=== PATIENT | female | born 1970 | race Caucasian/White ===

== ENCOUNTER 2016-10-21 09:36 | Emergency (ER) | payer BC ==
[~2016-10-21] VITALS: Ht 162.6 cm; Wt 55.5 kg
[2016-10-21 09:37] VITALS: TEMP 36.5; Ht 162.6 cm; Wt 55.5 kg
[2016-10-21] MEDS ORDERED: SODIUM CHLORIDE 0.9% 1000ML 1,000 ML IV STA (10:15)
--- NOTE | 2016-10-21 10:47 | EMERGENCY ROOM VISIT NOTE ---
History Report prepared by Chel: Denita Ba Under the Supervision of: Dr. Say Gonzalez M.D. First contact with patient: 09:51 Chief Complaint: SYNCOPE (NEAR SYNCOPE) Stated Complaint: SYNCOPE Nursing Triage Summary: Pt. dx. with glaucoma 06/2016. She feels that this morrning she experienced a "glaucoma attack". She went from a room with bright lights to darkness and suddenly noticed "snake rainbows" in her peripheral vision. She then had a syncopal episode in the apartment in [place], she is staying in an apartment over the coffee shop (her son is at [facility]), she denies injury, and the coffee shop called 911. History of Present Illness The patient is a 45 year old female who presents to the Emergency Room with complaints of an episode of syncope occurring this morning. 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 She states that she was plucking her eyebrows in a bright light this morning and moved into a dark room when she started seeing "colored snakes." The patient states that she instantly felt faint and nauseous. She states she decided she might need coffee and took he daughter outside to go get some when she lost consciousness on the sidewalk. She states that she thinks it was only for a couple seconds. She states she didn 't hit her head because she landed on her arm. She reports that shortly after the episode, the "rainbow snakes" went away. She states that someone saw her fall and no one saw shaking or tongue biting. The patient currently complains of lightheadedness, headache, and tingling in hands. She currently rates her pain as a 2/10 in severity. The patient denies any numbness, these symptoms in the past, chest pain, sob, urinary symptoms, feeling heart beat change, and the use of blood thinners. The patient notes a history of mitral valve prolapse. Source of History: patient Onset: this morning Position: other (global) Symptom Intensity: 2/10 Quality: other (global) Timing: other (episode) Associated Symptoms: + headache, + nausea, No chest pain, No SOB, No urinary symptoms, No numbness Note: The patient complains of seeing "rainbow snakes," tingling in her hands, and lightheadedness. The patient denies hitting her head, these symptoms in the past , feeling her heartbeat change, and the use of blood thinners. Review of Systems See HPI for pertinent positives and negatives. A total of ten systems were reviewed and were otherwise negative. Past Medical & Surgical Medical Problems: (1) Mitral valve prolapse Family History No pertinent family history Social History Smoking Status: Former Smoker Alcohol Use: occasionally (2 beers a week) Drug Use: none Housing Status: lives with family Occupation Status: employed Current/Historical Medications No Active Prescriptions or Reported Meds Allergies Coded Allergies: Doxycycline (Unverified Allergy, Intermediate, HIVES, 10/21/16) Meperidine (Unverified Allergy, Intermediate, VOMITING, 10/21/16) Morphine (Unverified Allergy, Intermediate, UNKNOWN/ CHILDHOOD ALLERGY., ) Physical Exam Vital Signs Date Time Temp Pulse Resp B/P (MAP) Pulse Ox O2 Delivery O2 Flow Rate FiO2 10/21/16 11:18 50 16 110/70 98 Room Air 10/21/16 10:25 59 10/21/16 10:00 Room Air 10/21/16 09:57 55 96/58 57 95/68 63 106/67 10/21/16 09:37 36.5 56 16 88/71 98 Room Air Physical Exam GENERAL: Awake, alert, well-appearing, NAD HENT: Normocephalic, atraumatic. No visual deficits. Visual acuity is normal. No noted acute abrasions, hematoma, or trauma to head or face. EYES: Normal conjunctiva. Sclera non-icteric. NECK: Supple. No nuchal rigidity. FROM. RESPIRATORY: CTAB, no rhonchi, wheezing, crackles CARDIAC: RRR, no MRG ABDOMEN: Soft, NTND, BS+ MSK: No chest wall TTP, no LE edema NEURO: GCS 15, CN 2-12 intact, moves all 4s on command SKIN: No rash or jaundice noted. Medical Decision & Procedures ER Provider Diagnostic Interpretation: Radiology results as stated below per my review and radiologist interpretation: CHEST ONE VIEW PORTABLE CLINICAL HISTORY: syncope COMPARISON STUDY: No previous studies for comparison. FINDINGS: The cardiac and mediastinal contours are normal. There is no evidence of focal pulmonary consolidation. There is no evidence of failure. No pleural effusions are visualized.[ IMPRESSION: No active disease in the chest. Electronically signed by: Drew Burgess M.D. 10/21/2016 11:10 AM Dictated Date/Time: 10/21/2016 11:10 AM Laboratory Results 10/21/16 11:04 Red Blood Count 4.08, Mean Corpuscular Volume 98.5, Mean Corpuscular Hemoglobin 34.6, Mean Corpuscular Hemoglobin Concent 35.1, Mean Platelet Volume 8.7, Neutrophils (%) (Auto) 85.0, Lymphocytes (%) (Auto) 8.7, Monocytes (%) (Auto) 5.6, Eosinophils (%) (Auto) 0.3, Basophils (%) (Auto) 0.2, Neutrophils # (Auto) 11.03, Lymphocytes # (Auto) 1.13, Monocytes # (Auto) 0.72, Eosinophils # (Auto) 0.04, Basophils # (Auto) 0.02 10/21/16 11:04 Test 10/21/16 11:04 White Blood Count 12.96 K/uL (4.8-10.8) Red Blood Count 4.08 M/uL (4.2-5.4) Hemoglobin 14.1 g/dL (12.0-16.0) Hematocrit 40.2 % (37-47) Mean Corpuscular Volume 98.5 fL (80-100) Mean Corpuscular Hemoglobin 34.6 pg (25-34) Mean Corpuscular Hemoglobin Concent 35.1 g/dl (32-36) Platelet Count 298 K/uL (130-400) Mean Platelet Volume 8.7 fL (7.4-10.4) Neutrophils (%) (Auto) 85.0 % Lymphocytes (%) (Auto) 8.7 % Monocytes (%) (Auto) 5.6 % Eosinophils (%) (Auto) 0.3 % Basophils (%) (Auto) 0.2 % Neutrophils # (Auto) 11.03 K/uL (1.4-6.5) Lymphocytes # (Auto) 1.13 K/uL (1.2-3.4) Monocytes # (Auto) 0.72 K/uL (0.11-0.59) Eosinophils # (Auto) 0.04 K/uL (0-0.5) Basophils # (Auto) 0.02 K/uL (0-0.2) RDW Standard Deviation 43.9 fL (36.4-46.3) RDW Coefficient of Variation 12.1 % (11.5-14.5) Immature Granulocyte % (Auto) 0.2 % Immature Granulocyte # (Auto) 0.02 K/uL (0.00-0.02) Urine Color YELLOW Urine Appearance CLEAR (CLEAR) Urine pH >= 9.0 (4.5-7.5) Urine Specific [place] 1.013 (1.000-1.030) Urine Protein NEG (NEG) Urine Glucose (UA) NEG (NEG) Urine Ketones NEG (NEG) Urine Occult Blood NEG (NEG) Urine Nitrite NEG (NEG) Urine Bilirubin NEG (NEG) Urine Urobilinogen NEG (NEG) Urine Leukocyte Esterase NEG (NEG) Anion Gap 6.0 mmol/L (3-11) Est Creatinine Clear Calc Drug Dose 70.6 ml/min Estimated GFR () 93.9 Estimated GFR (Non- 81.0 BUN/Creatinine Ratio 10.6 (10-20) Calcium Level 8.3 mg/dl (8.5-10.1) Phosphorus Level 1.6 mg/dl (2.5-4.9) Magnesium Level 2.1 mg/dl (1.8-2.4) Total Bilirubin 0.4 mg/dl (0.2-1) Direct Bilirubin 0.1 mg/dl (0-0.2) Aspartate Amino Transf (AST/SGOT) 17 U/L (15-37) Alanine Aminotransferase (ALT/SGPT) 23 U/L (12-78) Alkaline Phosphatase 52 U/L (45-117) Total Protein 6.3 gm/dl (6.4-8.2) Albumin 3.5 gm/dl (3.4-5.0) Thyroid Stimulating Hormone (TSH) 0.805 uIu/ml (0.300-4.500) Laboratory results reviewed by me ECG Indication: syncope Rate (beats per minute): 55 Rhythm: sinus bradycardia Findings: other (normal NH and QRS intervals, no STS changes or TWI) ED Course 1003: The patient was evaluated in room B7. A complete history and physical exam was performed. 1015: Ordered NSS 1000 ml @ 999 mls/hr IV. 1145: I reevaluated the patient. Discussed results and discharge instructions: She verbalized understanding and agreement. The patient is ready for discharge. Medical Decision The patient is a 45 year old female who presents to the Emergency Room with complaints of an episode of syncope occurring this morning. The patient states a history of mitral valve prolapse and acute tim glaucoma. I discussed the signs and symptoms of acute angle glaucoma. The patient does not have red irritated eyes, pupils are symmetric, and visual acuity is intact. Differential diagnoses include situational syncope, dehydration, complicated migraine, seizure. I discussed with the patient and her son symptoms may be related to a complicated migraine in addition may have been some situational syncope. Patient denied having any stressful events however she did note in her exam that her was being seen by a neurologist for "bad things." This may also be a contributing factor as they're currently traveling out of [place] and with her son at [facility]. Patient's EKG did show some sinus bradycardia without any acute changes or arrhythmias noted. Patient was noted to have low calcium and phosphorus. Patient declined any fluids and do not want any additional medications for her possible migraine headache. Patient did note that she may have had an episode of acute angle closure glaucoma however no signs or symptoms were noted on exam. Patient has normal visual acuity and had no injected conjunctiva and her pupils were symmetric. Patient' s findings were discussed. Patient did not have any incontinence or tongue biting less likely seizure. Patient tolerated by mouth and had no further symptoms. Patient was given strict follow-up for discharge, return precautions. Patient agreed with plan of care and was discharged home. Impression Primary Impression: Syncope Additional Impressions: Bradycardia Hypocalcemia Hypophosphatemia Scribe Attestation The scribe's documentation has been prepared under my direction and personally reviewed by me in its entirety. I confirm that the note above accurately reflects all work, treatment, procedures, and medical decision making performed by me. Departure Information Dispostion Home / Self-Care Prescriptions No Active Prescriptions or Reported Meds Referrals No Doctor, Assigned (PCP) Forms HOME CARE DOCUMENTATION FORM, IMPORTANT VISIT INFORMATION Patient Instructions ED Bradycardia, Hypocalcemia Dc, Hypophosphatemia Dc, [facility], Syncope Additional Instructions Please return to the emergency department if you've worsening or recurrent symptoms. Please follow-up with her primary care physician for additional outpatient follow-up. Please continue augmenting her diet with calcium and phosphate as they were low during her visit today. Problem Qualifiers
--- NOTE | 2016-10-21 11:11 | DIAGNOSTIC IMAGING REPORT ---
CHEST ONE VIEW PORTABLE CLINICAL HISTORY: syncope COMPARISON STUDY: No previous studies for comparison. FINDINGS: The cardiac and mediastinal contours are normal. There is no evidence of focal pulmonary consolidation. There is no evidence of failure. No pleural effusions are visualized.[ IMPRESSION: No active disease in the chest. Electronically signed by: Drew Burgess M.D. 10/21/2016 11:10 AM Dictated Date/Time: 10/21/2016 11:10 AM
[2016-10-21 11:16] LABS: BASO % 0.2 %; BASO ABS # 0.02 K/uL (0-0.2); COMPLETE YES; EOS % 0.3 %; HEMATOCRIT 40.2 % (37-47); IG% 0.2 %; LYMPH % 8.7 %; LYMPH ABS # 1.13 K/uL (1.2-3.4); MEAN CELL VOLUME 98.5 fL (80-100); MEAN CORPUSCULAR HEMOGLOBIN 34.6 pg (25-34); MEAN CORPUSCULAR HGB CONC 35.1 g/dl (32-36); MEAN PLATELET VOLUME 8.7 fL (7.4-10.4); MONO % 5.6 %; PLATELET COUNT 298 K/uL (130-400); RED BLOOD COUNT 4.08 M/uL (4.2-5.4); WHITE BLOOD COUNT 12.96 K/uL (4.8-10.8)
[2016-10-21 11:18] VITALS: BP 110/70; PULSE 50; O2SAT 98
[2016-10-21 11:35] LABS: BUN/CREATININE RATIO 10.6 (10-20); CALCIUM 8.3 mg/dl (8.5-10.1); CREATININE 0.86 mg/dl (0.60-1.20); MAGNESIUM 2.1 mg/dl (1.8-2.4)
[2016-10-21 11:36] LABS: URINE APPEARANCE CLEAR (CLEAR); URINE BILIRUBIN NEG (NEG); URINE COLOR YELLOW; URINE NITRITE NEG (NEG); URINE PH >= 9.0 (4.5-7.5); URINE SPECIFIC GRAVITY 1.013 (1.000-1.030); UROBILINOGEN NEG (NEG)
[2016-10-21 11:38] LABS: MANUAL MICROSCOPIC REQUIRED? NO; REVIEW REQ? NO
[2016-10-21 11:43] LABS: PHOSPHORUS 1.6 mg/dl (2.5-4.9); THYROID STIMULATING HORMONE 0.805 uIu/ml (0.300-4.500)
== END 2016-10-21 12:12 | disposition home or self-care (01) ==
LOC: C.EDB 09:41
DX: R55 Syncope and collapse (principal); E83.51 Hypocalcemia; E83.31 Familial hypophosphatemia; R00.1 Bradycardia, unspecified; I34.1 Nonrheumatic mitral (valve) prolapse; Z87.891 Personal history of nicotine dependence; Z88.5 Allergy status to narcotic agent; Z88.8 Allergy status to other drugs, medicaments and biological substances